=== PATIENT | male | born 1950 | race Caucasian/White ===

== ENCOUNTER 2016-12-26 18:48 | Observation (INO) | payer MEDICARE, OTHER ==
[~2016-12-26] VITALS: Ht 175.3 cm; Wt 113.6 kg
[2016-12-26] MEDS ORDERED: JANUVIA50 MG PO (19:18)
[2016-12-26] MEDS ORDERED: PROSCAR 5MG5 MG PO (19:19)
[2016-12-26 21:15] VITALS: BP 160/92; PULSE 53; TEMP 98.4
[2016-12-26 21:30] VITALS: BP 149/79; PULSE 54
[2016-12-26 22:11] VITALS: BP 160/92; PULSE 52
== END 2016-12-26 21:55 | disposition home or self-care (01) ==
LOC: COL.ER 18:48 → SURG 20:10
DX: T18.128A Food in esophagus causing other injury, initial encounter (principal); K22.2 Esophageal obstruction; K21.0 Gastro-esophageal reflux disease with esophagitis
CPT/HCPCS: G0379; J2250; J3010; J3360; J7030